=== PATIENT | male | born 1945 | race African-American/Black ===

== ENCOUNTER 2025-04-24 15:11 | Inpatient (IN) | payer OTHER ==
[2025-04-24] MEDS ORDERED: CALCIUM GLUC IN NACL, ISO-OSM 1 GM/50 ML BAG IVPB ONE (15:18)
[2025-04-24] MEDS ORDERED: MAGNESIUM SULFATE IN WATER 2 GM/50 ML IVPB IVPB ONE (15:18)
[2025-04-24 15:29] LABS: VENOUS BASE EXCESS -8.3 mmol/L (-2-2); VENOUS O2 SATURATION 84.7 % (70-80); VENOUS PCO2 63.2 mmHg (38-52)
[2025-04-24 15:31] LABS: ABSOLUTE IMMATURE GRANULOCYTES 0.11 x10^3/uL (0.0-0.031); BASOPHILS # 0.01 x10^3/uL (0.01-0.08); HEMATOCRIT 45.2 % (40.1-51.0); HEMOGLOBIN 14.9 g/dL (13.7-17.5); MEAN CELL VOLUME 87.4 fl (79.0-92.2); MEAN PLT VOLUME 10.2 fl (9.4-12.4); MONOCYTE # 1.11 x10^3/uL (0.30-0.82); MONOCYTE % 6.6 % (5.3-12.2); PLATELET COUNT 273 x10^3/uL (163-337); RDW 13.5 % (12.2-16.6); VENOUS PH 7.153 (7.310-7.410)
[2025-04-24] MEDS: methylPREDNISolone NA SUCC 125 MG/2 ML VIAL IVPB ONE (15:34)
[2025-04-24] MEDS: ALBUTEROL SO4 2.5/IPRATROPIUM 0.5 INH SOL 3 ML VIAL.NEB. NEB ONE ×3 (15:34→20:14)
[2025-04-24] MEDS: MAGNESIUM SULF 50% (8.12 MEQ/2 ML-1 GM VIAL) IVPB ONE (15:34)
[2025-04-24 15:41] LABS: INR 1.16 (0.83-1.09); PROTHROMBIN TIME (PATIENT) 12.8 SEC (9.7-13.0)
[2025-04-24 15:43] LABS: ACTIVATED PTT 33.2 SECONDS (25.2-36.5)
[2025-04-24 15:50] LABS: CHLORIDE 95 mmol/L (98-107); POTASSIUM 3.2 mmol/L (3.5-5.1); SODIUM 139 mmol/L (136-145)
[2025-04-24] MEDS: ROCURONIUM BROMIDE 50 MG/5 ML VIAL IV ONE ×2 (15:51→16:02)
[2025-04-24] MEDS: ETOMIDATE 20 MG/10 ML VIAL IVPUSH ONE (15:51)
[2025-04-24 15:52] LABS: ALBUMIN 3.2 g/dl (3.4-5.0); ANION GAP 20 mmol/L (4-13); BLOOD UREA NITROGEN 43.3 mg/dL (7-18); CALCIUM 9.6 mg/dL (8.5-10.1); CO2 24 mmol/L (21-32); MAGNESIUM 2.6 mg/dL (1.8-2.4)
[2025-04-24] MEDS: MAGNESIUM 2GM/50ML STERILE WATER IVPB IVPB ONE (15:53)
[2025-04-24 15:56] LABS: CREATININE 2.3 mg/dL (0.55-1.3); SGOT/AST 28 U/L (15-37); SGPT/ALT 18 U/L (13-61)
[2025-04-24] MEDS ORDERED: MEROPENEM 1 GM VIAL (RESTRICTED TO ID) IVPB ONE (15:56)
[2025-04-24 15:57] LABS: BILIRUBIN,TOTAL 1.2 mg/dL (0.2-1); TOT PROT 7.2 g/dl (6.4-8.2)
[2025-04-24 15:58] LABS: ALK PHOS 151 U/L (45-117)
[2025-04-24] MEDS: MEROPENEM 1 GM in DEXTROSE 5%-WATER 100 ML IVPB ONE (16:02)
[2025-04-24] MEDS ORDERED: PROPOFOL 1,000,000 MCG/100 ML VIAL ONE (16:06)
[2025-04-24] MEDS: PROPOFOL 1,000,000 MCG/100 ML VIAL IVPB SCH (16:16)
[2025-04-24 16:29] LABS: GLUCOSE,RANDOM 711 mg/dL (74-106)
[2025-04-24 16:30] LABS: LACTIC ACID 8.2 mmol/L (0.4-2.0)
[2025-04-24] MEDS ORDERED: AZITHROMYCIN IVPB 500 MG/250 ML BAG IVPB ONE (16:35)
[2025-04-24] MEDS ORDERED: KCL 10 MEQ IVPB 10 MEQ/100 ML INFUS.BAG IVPB ONE ×2 (16:40→18:45)
[2025-04-24] MEDS: AZITHROMYCIN IVPB 500 MG in DEXTROSE 5%-WATER - 250 ML IVPB ONE (16:50)
[2025-04-24] MEDS: LACTATED RINGERS SOLUTION 1000 ML INFUS.BAG IV ONE (16:55)
[2025-04-24] MEDS: KCL 10 MEQ IVPB 10 MEQ/100 ML INFUS.BAG IVPB SCH (16:55)
[2025-04-24 17:25] LABS: PH,URINE 6.5 (5.0-8.0); URINE APPEARANCE CLEAR; URINE BILIRUBIN NEGATIVE (NEGATIVE); URINE COLOR YELLOW; URINE GLUCOSE (UA) 3+ (NEGATIVE); URINE KETONE NEGATIVE (NEGATIVE); URINE LEUK ESTERASE NEGATIVE (NEGATIVE); URINE NITRITE NEGATIVE (NEGATIVE); URINE PROTEIN 3+ (NEGATIVE); URINE UROBILINOGEN 0.2 mg/dL (0.2-1.0)
[2025-04-24 17:33] LABS: EPI CELLS 2.2 /uL (0-25.1); HYALINE CASTS 0.25 /uL (0-3.1); URINE BACTERIA 0.9 /uL (0-1359); URINE RBC 24.6 /uL (0-23.9); URINE WBC 3.5 /uL (0-25.8)
[2025-04-24 17:36] LABS: ARTERIAL BLD GAS O2 SATURATION 99.7 % (95-98); ARTERIAL BLOOD GAS BASE EXCESS -4.3 mmol/L (-2-2); ARTERIAL BLOOD GAS PO2 332.3 mmHg (80-100); ARTERIAL BLOOD GAS pH 7.319 (7.350-7.450)
[2025-04-24 17:37] LABS: ALLENS TEST POSITIVE
[2025-04-24 17:38] LABS: VENT MODE V-AC; VENT RATE 16
[2025-04-24] MEDS ORDERED: VANCOMYCIN 1 GM PREMIX (F) 1 GM/200 ML BAG ONE (17:49)
[2025-04-24] MEDS: VANCOMYCIN 1 GM PREMIX (F) 1 GM/200 ML BAG IVPB ONE (18:12)
[2025-04-24 18:50] LABS: CHLORIDE 100 mmol/L (98-107); POTASSIUM 3.8 mmol/L (3.5-5.1); SODIUM 140 mmol/L (136-145)
[2025-04-24 18:52] LABS: ANION GAP 15 mmol/L (4-13); BLOOD UREA NITROGEN 42.5 mg/dL (7-18); CALCIUM 8.9 mg/dL (8.5-10.1); CO2 25 mmol/L (21-32)
[2025-04-24 19:59] LABS: GLUCOSE,RANDOM 694 mg/dL (74-106); LACTIC ACID 2.9 mmol/L (0.4-2.0)
[2025-04-24] MEDS ORDERED: FENTANYL NS IVPB 500 MCG/100 ML BAG IVPB ONE ×2 (20:02→22:53)
[2025-04-24] MEDS: FENTANYL IVPB 500 MCG/100 ML BAG IVPB SCH (20:05)
[2025-04-24] MEDS ORDERED: DEXTROSE 50%-WATER 25 GM/50 ML DISP.SYRIN IVPUSH PRN (20:09)
[2025-04-24] MEDS: ALBUTEROL SO4 2.5/IPRATROPIUM 0.5 INH SOL 3 ML VIAL.NEB. NEB PRN (20:14)
[2025-04-24] MEDS ORDERED: KCL 20 MEQ PREMIX BAG 20 MEQ/100 ML INFUS.BAG IVPB SCH (20:15)
[2025-04-24] MEDS: INSULIN REGULAR HUMAN 100 UNITS/ML *VIAL* (FOR IVP) IVPUSH ONE (20:25)
[2025-04-24] MEDS: INSULIN REGULAR 100 UNITS in SODIUM CHLORIDE 99 ML IVPB SCH (21:08)
[2025-04-24] MEDS: D5-1/2NS+20 MEQ KCL - 20 MEQ/1,000 ML INFUS.BAG IV SCH (21:15)
[2025-04-24] MEDS ORDERED: INSULIN REGULAR HUMAN 100 UNITS/ML *VIAL ONE (21:24)
[2025-04-24] MEDS: APIXABAN 5 MG TABLET NGT SCH (21:29)
[2025-04-24] MEDS: CHLORHEXIDINE GLUCONATE 4% CLEANSER FOR DECOLONIZATION TP SCH (21:29)
[2025-04-24] MEDS: MUPIROCIN 2% TOPICAL OINTMENT FOR DECOLONIZATION NS SCH (21:29)
[2025-04-24] MEDS: levETIRAcetam 500 MG/5 ML INJECTION VIAL IVPB SCH (22:00)
[2025-04-24] MEDS ORDERED: APIXABAN 5 MG TABLET PO SCH (22:00)
[2025-04-24] MEDS ORDERED: HEPARIN NA (PORCINE) 5,000 UNITS/ML 1ML VIAL SQ SCH (22:00)
[2025-04-24 22:06] LABS: ARTERIAL BLOOD GAS BASE EXCESS -3.7 mmol/L (-2-2); ARTERIAL BLOOD GAS pH 7.359 (7.350-7.450); O2 CONTENT 1.81 % vol
[2025-04-24 22:34] LABS: CHLORIDE 102 mmol/L (98-107); POTASSIUM 3.5 mmol/L (3.5-5.1); SODIUM 140 mmol/L (136-145)
[2025-04-24 22:35] LABS: CALCIUM 8.8 mg/dL (8.5-10.1)
[2025-04-24 22:36] LABS: ANION GAP 15 mmol/L (4-13); BLOOD UREA NITROGEN 45.5 mg/dL (7-18); CO2 23 mmol/L (21-32); MAGNESIUM 2.5 mg/dL (1.8-2.4)
[2025-04-24 22:39] LABS: CREATININE 1.9 mg/dL (0.55-1.3); PHOSPHOROUS 3.8 mg/dL (2.5-4.9)
[2025-04-24 22:41] LABS: GLUCOSE,RANDOM 714 mg/dL (74-106)
[2025-04-24] MEDS: FENTANYL NS IVPB 500 MCG/100 ML BAG IVPB SCH (23:50)
[2025-04-25] MEDS: NOREPINEPHRINE 0.9 % NACL 8 MG/250 ML BAG IVPB SCH (00:23)
[2025-04-25] MEDS: MEROPENEM 1 GM in DEXTROSE 5%-WATER 100 ML IVPB SCH ×2 (01:17→18:32)
[2025-04-25 01:41] LABS: CHLORIDE 104 mmol/L (98-107); POTASSIUM 3.3 mmol/L (3.5-5.1); SODIUM 141 mmol/L (136-145)
[2025-04-25 01:44] LABS: ANION GAP 11 mmol/L (4-13); BLOOD UREA NITROGEN 50.1 mg/dL (7-18); CALCIUM 8.3 mg/dL (8.5-10.1); CO2 26 mmol/L (21-32); MAGNESIUM 2.5 mg/dL (1.8-2.4)
[2025-04-25 01:47] LABS: CREATININE 2.3 mg/dL (0.55-1.3); SGOT/AST 27 U/L (15-37); SGPT/ALT 15 U/L (13-61)
[2025-04-25 01:48] LABS: PHOSPHOROUS 2.5 mg/dL (2.5-4.9)
[2025-04-25 01:49] LABS: ALBUMIN 2.4 g/dl (3.4-5.0); BILIRUBIN,TOTAL 0.9 mg/dL (0.2-1); GLUCOSE,RANDOM 463 mg/dL (74-106); TOT PROT 5.3 g/dl (6.4-8.2)
[2025-04-25 01:53] LABS: N-TERMINAL BNP 3419.6 pg/ml (5-450)
[2025-04-25 02:01] LABS: ALK PHOS 105 U/L (45-117)
[2025-04-25] MEDS: VANCOMYCIN/WATER FOR INJ (PEG) 1,000 MG/200 ML BAG IVPB SCH (05:04)
[2025-04-25] MEDS: methylPREDNISolone NA SUCC 40 MG/1 ML VIAL IVPUSH SCH (05:04)
[2025-04-25] MEDS ORDERED: FUROSEMIDE 40 MG/4 ML INJECTABLE VIAL IVPUSH SCH (06:00)
[2025-04-25 07:04] LABS: INR 1.13 (0.83-1.09); PROTHROMBIN TIME (PATIENT) 12.4 SEC (9.7-13.0)
[2025-04-25 07:08] LABS: HEMATOCRIT 35.1 % (40.1-51.0); HEMOGLOBIN 11.8 g/dL (13.7-17.5); MCHC 33.6 g/dl (32.3-36.5); MEAN CELL VOLUME 86.2 fl (79.0-92.2); MEAN PLT VOLUME 10.1 fl (9.4-12.4); PLATELET COUNT 214 x10^3/uL (163-337); RDW 13.4 % (12.2-16.6)
[2025-04-25] MEDS: POTASSIUM CHLORIDE ORAL LIQUID 20 MEQ/15 ML NGT ONE (07:10)
[2025-04-25 07:18] LABS: POTASSIUM 3.4 mmol/L (3.5-5.1)
[2025-04-25 07:24] LABS: BLOOD UREA NITROGEN 51.8 mg/dL (7-18); CALCIUM 8.7 mg/dL (8.5-10.1)
[2025-04-25 07:27] LABS: CREATININE 2.3 mg/dL (0.55-1.3)
[2025-04-25] MEDS: INSULIN GLARGINE (LANTUS) 100 UNITS/ML UNITS SQ SCH (08:19)
[2025-04-25 09:08] LABS: POTASSIUM 4.1 mmol/L (3.5-5.1)
[2025-04-25 09:10] LABS: BLOOD UREA NITROGEN 52.1 mg/dL (7-18)
[2025-04-25 09:12] LABS: CREATININE 2.3 mg/dL (0.55-1.3)
[2025-04-25] MEDS: PANTOPRAZOLE 40 MG TABLET PO SCH (09:46)
[2025-04-25] MEDS: DEXTROSE 5%-NORMAL SALINE 1,000 ML IV SCH (10:50)
[2025-04-25] MEDS: INSULIN ASPART SLIDING SCALE (NOVOLOG) 1 VIAL SQ SCH (17:22)
[2025-04-25] MEDS ORDERED: ALBUMIN HUMAN 25% 12.5 GM/50 ML VIAL IV SCH (22:00)
[2025-04-25] MEDS: ATORVASTATIN CA 80 MG TABLET (FP) NGT SCH (22:05)
[2025-04-25] MEDS: MINERAL OIL/PET HY-PHL TOPICAL OINTMENT 454 GM JAR TP SCH (22:05)
[2025-04-25] MEDS: POLYETHYLENE GLYCOL (HEALTHYLAX) 3350 17 GM PACKET NGT SCH (22:05)
[2025-04-25] MEDS: ALBUMIN HUMAN 25% 100 ML VIAL IV SCH (22:07)
[2025-04-25] MEDS: DEXMEDETOMIDINE PREMIX 400 MCG/100 ML BAG IVPB SCH (22:11)
[2025-04-26] MEDS: INSULIN GLARGINE (LANTUS) 100 UNITS/ML UNITS SQ SCH ×2 (06:40→21:06)
[2025-04-26 07:09] LABS: ABSOLUTE IMMATURE GRANULOCYTES 0.09 x10^3/uL (0.0-0.031); BASOPHILS # 0.02 x10^3/uL (0.01-0.08); HEMOGLOBIN 10.6 g/dL (13.7-17.5); MCHC 33.1 g/dl (32.3-36.5); MEAN CELL VOLUME 87.7 fl (79.0-92.2); MEAN PLT VOLUME 10.6 fl (9.4-12.4); MONOCYTE # 1.07 x10^3/uL (0.30-0.82); MONOCYTE % 5.3 % (5.3-12.2); PLATELET COUNT 158 x10^3/uL (163-337); RDW 13.8 % (12.2-16.6)
[2025-04-26 07:26] LABS: POTASSIUM 4.5 mmol/L (3.5-5.1)
[2025-04-26 07:33] LABS: ALBUMIN 2.8 g/dl (3.4-5.0)
[2025-04-26 07:34] LABS: CALCIUM 8.5 mg/dL (8.5-10.1)
[2025-04-26 07:36] LABS: MAGNESIUM 2.7 mg/dL (1.8-2.4)
[2025-04-26 07:37] LABS: CREATININE 2.6 mg/dL (0.55-1.3); PHOSPHOROUS 5.6 mg/dL (2.5-4.9)
[2025-04-26 07:38] LABS: BILIRUBIN,TOTAL 0.7 mg/dL (0.2-1); TOT PROT 5.5 g/dl (6.4-8.2)
[2025-04-26] MEDS ORDERED: LORazepam 2 MG/ML SDV VIAL ONE ×2 (09:40→09:44)
[2025-04-26] MEDS ORDERED: PROPOFOL 1,000,000 MCG/100 ML VIAL ONE (09:53)
[2025-04-26] MEDS: LORazepam 2 MG/ML SDV VIAL IVPUSH ONE ×2 (10:00→10:05)
[2025-04-26] MEDS: levETIRAcetam 500 MG/5 ML INJECTION VIAL IVPB ONE (10:15)
[2025-04-26] MEDS: PROPOFOL 1,000,000 MCG/100 ML VIAL IVPB SCH (10:15)
[2025-04-26] MEDS ORDERED: NOREPINEPHRINE BITARTRATE 4 MG/4 ML ML IV ONE (11:05)
[2025-04-26] MEDS: ASPIRIN 81 MG CHEWABLE TABLETS PO SCH (11:55)
[2025-04-26] MEDS: CEFTRIAXONE 2 GM-D5W BAG 2 GM/50 ML BAG IVPB SCH (12:00)
[2025-04-26] MEDS: SODIUM CHLORIDE 0.45% 1,000 ML IV SCH (12:40)
[2025-04-26] MEDS ORDERED: ASPIRIN 81 MG CHEWABLE TABLETS ONE (16:03)
[2025-04-26] MEDS ORDERED: VANCOMYCIN 1 GM PREMIX (F) 1 GM/200 ML BAG IVPB ONE (20:00)
[2025-04-26] MEDS: VANCOMYCIN/WATER FOR INJ (PEG) 1 GM/200 ML BAG IVPB ONE (20:44)
[2025-04-26] MEDS: levETIRAcetam 500 MG/5 ML INJECTION VIAL IVPB SCH (21:05)
[2025-04-26] MEDS: BISACODYL 10 MG SUPP.RECT PR PRN (21:07)
[2025-04-26 21:14] LABS: ARTERIAL BLOOD GAS BASE EXCESS 0.9 mmol/L (-2-2); ARTERIAL BLOOD GAS PO2 151.1 mmHg (80-100)
[2025-04-27 07:36] LABS: ABSOLUTE IMMATURE GRANULOCYTES 0.16 x10^3/uL (0.0-0.031); BASOPHILS # 0.01 x10^3/uL (0.01-0.08); HEMATOCRIT 32.6 % (40.1-51.0); HEMOGLOBIN 10.7 g/dL (13.7-17.5); MCHC 32.8 g/dl (32.3-36.5); MEAN CELL VOLUME 88.6 fl (79.0-92.2); MONOCYTE % 5.6 % (5.3-12.2); PLATELET COUNT 161 x10^3/uL (163-337); RDW 13.9 % (12.2-16.6)
[2025-04-27 07:44] LABS: POTASSIUM 3.6 mmol/L (3.5-5.1)
[2025-04-27 07:48] LABS: ALBUMIN 3.1 g/dl (3.4-5.0); BLOOD UREA NITROGEN 81.8 mg/dL (7-18)
[2025-04-27 07:49] LABS: CALCIUM 8.4 mg/dL (8.5-10.1); LDL CHOLESTEROL (ONLY SJRH) 89 mg/dL (5-100)
[2025-04-27 07:50] LABS: HDL CHOLESTEROL 30 mg/dL (40-60); MAGNESIUM 2.7 mg/dL (1.8-2.4)
[2025-04-27 07:51] LABS: CREATININE 2.1 mg/dL (0.55-1.3)
[2025-04-27 07:52] LABS: PHOSPHOROUS 2.9 mg/dL (2.5-4.9)
[2025-04-27 07:53] LABS: BILIRUBIN,TOTAL 0.5 mg/dL (0.2-1)
[2025-04-27 07:55] LABS: CHOLESTEROL 182 mg/dL (50-200)
[2025-04-27 07:57] LABS: TOT PROT 5.5 g/dl (6.4-8.2)
[2025-04-27] MEDS: ASPIRIN COATED 81 MG TABLET.EC PO SCH (09:04)
[2025-04-27] MEDS: methylPREDNISolone NA SUCC 40 MG/1 ML VIAL IVPUSH SCH (09:04)
[2025-04-27] MEDS: amLODIPine BESYLATE 10 MG TABLET (FP) NGT ONE (18:37)
[2025-04-27] MEDS: hydrALAZINE HCL 20 MG/ML VIAL IVPUSH ONE ×2 (20:10→22:16)
[2025-04-27] MEDS ORDERED: hydrALAZINE HCL 10 MG TABLET PO SCH (22:00)
[2025-04-27] MEDS: hydrALAZINE HCL 10 MG TABLET NGT SCH (22:23)
[2025-04-27] MEDS: hydrALAZINE HCL 10 MG TABLET PO SCH (23:11)
[2025-04-27] MEDS: hydrALAZINE HCL 20 MG/ML VIAL IM ONE (23:11)
[2025-04-28] MEDS ORDERED: SODIUM CHLORIDE FOR INHALATION 3 ML VIAL.NEB IH SCH (06:30)
[2025-04-28 06:46] LABS: POTASSIUM 3.4 mmol/L (3.5-5.1)
[2025-04-28 06:50] LABS: ALBUMIN 2.8 g/dl (3.4-5.0); BLOOD UREA NITROGEN 61.6 mg/dL (7-18); CALCIUM 8.4 mg/dL (8.5-10.1); MAGNESIUM 2.6 mg/dL (1.8-2.4)
[2025-04-28 06:51] LABS: ABSOLUTE IMMATURE GRANULOCYTES 0.13 x10^3/uL (0.0-0.031); BASOPHILS # 0.02 x10^3/uL (0.01-0.08); HEMATOCRIT 35.6 % (40.1-51.0); HEMOGLOBIN 11.6 g/dL (13.7-17.5); MCHC 32.6 g/dl (32.3-36.5); MEAN CELL VOLUME 88.1 fl (79.0-92.2); MEAN PLT VOLUME 10.6 fl (9.4-12.4); MONOCYTE # 0.91 x10^3/uL (0.30-0.82); MONOCYTE % 7.1 % (5.3-12.2); PLATELET COUNT 197 x10^3/uL (163-337); RDW 13.8 % (12.2-16.6)
[2025-04-28 06:53] LABS: CREATININE 1.4 mg/dL (0.55-1.3)
[2025-04-28 06:54] LABS: PHOSPHOROUS 2.6 mg/dL (2.5-4.9)
[2025-04-28 06:55] LABS: BILIRUBIN,TOTAL 0.4 mg/dL (0.2-1); TOT PROT 5.4 g/dl (6.4-8.2)
[2025-04-28] MEDS: amLODIPine BESYLATE 10 MG TABLET (FP) NGT SCH (08:59)
[2025-04-28] MEDS: SODIUM CHLORIDE FOR INHALATION 3 ML VIAL.NEB IH SCH (09:00)
[2025-04-28] MEDS: ASPIRIN 81 MG CHEWABLE TABLETS PO ONE (09:16)
[2025-04-28] MEDS: PANTOPRAZOLE SODIUM 40 MG VIAL IVPUSH ONE (09:16)
[2025-04-28] MEDS: POTASSIUM CHLORIDE ORAL LIQUID 20 MEQ/15 ML NGT ONE ×2 (09:16→09:28)
[2025-04-28] MEDS: VANCOMYCIN 1,000 MG in DEXTROSE 5%-WATER - 250 ML IVPB SCH (09:27)
[2025-04-28] MEDS: VANCOMYCIN 1,000 MG in DEXTROSE 5%-WATER - 250 ML IVPB ONE (09:28)
[2025-04-28] MEDS: KCL 10 MEQ IVPB 10 MEQ/100 ML INFUS.BAG IVPB SCH (09:29)
[2025-04-28] MEDS: FUROSEMIDE 40 MG/4 ML INJECTABLE VIAL IVPUSH ONE (11:05)
[2025-04-28] MEDS: hydrALAZINE HCL 25 MG TABLET (FP) NGT SCH (14:37)
[2025-04-29] MEDS: hydrALAZINE HCL 20 MG/ML VIAL IVPUSH ONE (03:43)
[2025-04-29] MEDS: INSULIN GLARGINE (LANTUS) 100 UNITS/ML UNITS SQ SCH (06:40)
[2025-04-29 06:51] LABS: BASOPHILS # 0.02 x10^3/uL (0.01-0.08); RDW 13.9 % (12.2-16.6)
[2025-04-29 06:53] LABS: EOSINOPHIL % 0.1 % (0.8-7.0); EOSINOPHILS # 0.01 x10^3/uL (0.04-0.54); HEMATOCRIT 37.9 % (40.1-51.0); MCHC 31.7 g/dl (32.3-36.5); MEAN CELL VOLUME 89.6 fl (79.0-92.2); MEAN PLT VOLUME 10.5 fl (9.4-12.4); MONOCYTE # 1.23 x10^3/uL (0.30-0.82); MONOCYTE % 7.6 % (5.3-12.2); PLATELET COUNT 211 x10^3/uL (163-337)
[2025-04-29 07:12] LABS: POTASSIUM 3.6 mmol/L (3.5-5.1)
[2025-04-29 07:28] LABS: CALCIUM 9.3 mg/dL (8.5-10.1)
[2025-04-29 07:29] LABS: BLOOD UREA NITROGEN 54.3 mg/dL (7-18); MAGNESIUM 2.6 mg/dL (1.8-2.4)
[2025-04-29 07:32] LABS: CREATININE 1.5 mg/dL (0.55-1.3); PHOSPHOROUS 2.5 mg/dL (2.5-4.9)
[2025-04-29 07:33] LABS: BILIRUBIN,TOTAL 0.4 mg/dL (0.2-1); TOT PROT 5.8 g/dl (6.4-8.2)
[2025-04-29] MEDS ORDERED: SODIUM CHLORIDE 0.45% 1,000 ML IV SCH (08:45)
[2025-04-29] MEDS: ASPIRIN 81 MG CHEWABLE TABLETS PO SCH (09:28)
[2025-04-29] MEDS: PANTOPRAZOLE SODIUM 40 MG VIAL IVPUSH SCH (09:29)
[2025-04-29] MEDS: methylPREDNISolone NA SUCC 40 MG/1 ML VIAL IVPUSH SCH (09:29)
[2025-04-29] MEDS: LISINOPRIL 20 MG TABLET PO ONE (13:55)
[2025-04-29] MEDS: hydrALAZINE HCL 50 MG TABLET (FP) NGT SCH (13:55)
[2025-04-29] MEDS: POTASSIUM CHLORIDE 10 MEQ in DEXTROSE 5%-WATER - 1,000 ML IV SCH (18:39)
[2025-04-29 21:06] LABS: ANTIGLOMERULAR BASEMENT MEN.AB <0.2 units (0.0-0.9)
[2025-04-29] MEDS: DEXTROSE 5%-WATER - 1,000 ML IV SCH (22:19)
[2025-04-30 06:30] LABS: POTASSIUM 3.7 mmol/L (3.5-5.1)
[2025-04-30 06:33] LABS: BLOOD UREA NITROGEN 49.6 mg/dL (7-18); CALCIUM 8.8 mg/dL (8.5-10.1); MAGNESIUM 2.5 mg/dL (1.8-2.4)
[2025-04-30 06:36] LABS: CREATININE 1.4 mg/dL (0.55-1.3)
[2025-04-30 06:46] LABS: BASOPHILS # 0.02 x10^3/uL (0.01-0.08); EOSINOPHIL % 0.8 % (0.8-7.0); HEMATOCRIT 35.7 % (40.1-51.0); HEMOGLOBIN 11.1 g/dL (13.7-17.5); MCHC 31.1 g/dl (32.3-36.5); MEAN CELL VOLUME 91.5 fl (79.0-92.2); MEAN PLT VOLUME 10.4 fl (9.4-12.4); MONOCYTE % 7.7 % (5.3-12.2); PLATELET COUNT 206 x10^3/uL (163-337); RDW 14.1 % (12.2-16.6)
[2025-04-30] MEDS: LISINOPRIL 20 MG TABLET PO SCH (10:04)
[2025-04-30] MEDS ORDERED: BISACODYL 10 MG SUPP.RECT PR PRN (18:04)
[2025-04-30] MEDS ORDERED: DEXTROSE 50%-WATER 25 GM/50 ML DISP.SYRIN IVPUSH PRN (18:04)
[2025-04-30] MEDS: levETIRAcetam 500 MG/5 ML INJECTION VIAL IVPB SCH (21:36)
[2025-04-30] MEDS: POLYETHYLENE GLYCOL (HEALTHYLAX) 3350 17 GM PACKET NGT SCH (21:36)
[2025-04-30] MEDS: APIXABAN 5 MG TABLET NGT SCH (21:36)
[2025-04-30] MEDS: ATORVASTATIN CA 80 MG TABLET (FP) NGT SCH (21:36)
[2025-04-30] MEDS: INSULIN ASPART SLIDING SCALE (NOVOLOG) 1 VIAL SQ SCH (21:58)
[2025-05-01] MEDS: INSULIN GLARGINE (LANTUS) 100 UNITS/ML UNITS SQ SCH (06:50)
[2025-05-01 08:22] LABS: ABSOLUTE IMMATURE GRANULOCYTES 0.09 x10^3/uL (0.0-0.031); BASOPHILS # 0.01 x10^3/uL (0.01-0.08); EOSINOPHIL % 2.5 % (0.8-7.0); EOSINOPHILS # 0.27 x10^3/uL (0.04-0.54); HEMATOCRIT 36.1 % (40.1-51.0); HEMOGLOBIN 11.3 g/dL (13.7-17.5); MCHC 31.3 g/dl (32.3-36.5); MEAN CELL VOLUME 90.9 fl (79.0-92.2); MEAN PLT VOLUME 10.2 fl (9.4-12.4); MONOCYTE # 0.99 x10^3/uL (0.30-0.82); MONOCYTE % 9.3 % (5.3-12.2); PLATELET COUNT 232 x10^3/uL (163-337); RDW 13.5 % (12.2-16.6)
[2025-05-01 08:55] LABS: ALBUMIN 2.7 g/dl (3.4-5.0); BLOOD UREA NITROGEN 49.3 mg/dL (7-18); CALCIUM 9.2 mg/dL (8.5-10.1); MAGNESIUM 2.4 mg/dL (1.8-2.4)
[2025-05-01 08:56] LABS: CREATININE 1.4 mg/dL (0.55-1.3)
[2025-05-01 08:58] LABS: BILIRUBIN,TOTAL 0.5 mg/dL (0.2-1); TOT PROT 5.6 g/dl (6.4-8.2)
[2025-05-01] MEDS: PANTOPRAZOLE SODIUM 40 MG VIAL IVPUSH SCH (10:24)
[2025-05-01] MEDS: CEFTRIAXONE 2 GM-D5W BAG 2 GM/50 ML BAG IVPB SCH (10:24)
[2025-05-01] MEDS: amLODIPine BESYLATE 10 MG TABLET (FP) NGT SCH (10:25)
[2025-05-01] MEDS: ASPIRIN 81 MG CHEWABLE TABLETS PO SCH (10:25)
[2025-05-01] MEDS: LISINOPRIL 20 MG TABLET PO SCH (10:25)
[2025-05-01] MEDS: DEXTROSE 5%-WATER - 1,000 ML IV SCH (14:00)
[2025-05-01 23:59] VITALS: BMI 33.7
[2025-05-02 07:48] LABS: HEMATOCRIT 35.5 % (40.1-51.0); MEAN PLT VOLUME 10.4 fl (9.4-12.4); PLATELET COUNT 243 x10^3/uL (163-337); RDW 13.4 % (12.2-16.6)
[2025-05-02 08:12] LABS: POTASSIUM 4.1 mmol/L (3.5-5.1)
[2025-05-02 08:19] LABS: BLOOD UREA NITROGEN 55.1 mg/dL (7-18)
[2025-05-02 08:22] LABS: CALCIUM 9.3 mg/dL (8.5-10.1); MAGNESIUM 2.4 mg/dL (1.8-2.4); PHOSPHOROUS 3.4 mg/dL (2.5-4.9)
[2025-05-02 08:23] LABS: CREATININE 1.6 mg/dL (0.55-1.3)
[2025-05-02] MEDS: FAMOTIDINE 20 MG/2.5 ML ORAL LIQUID NGT SCH (10:08)
[2025-05-02] MEDS: MULTIVIT-MINERALS ORAL LIQUID PO SCH (14:19)
[2025-05-02] MEDS: ASCORBIC ACID 500 MG TABLET (FP) PO SCH (14:19)
[2025-05-02 16:06] LABS: C-ANCA <1:20 titer (Neg:<1:20)
[2025-05-02 19:11] VITALS: RESP 18
[2025-05-02] MEDS: ALBUTEROL SO4 2.5/IPRATROPIUM 0.5 INH SOL 3 ML VIAL.NEB. NEB PRN (20:23)
[2025-05-02] MEDS ORDERED: INSULIN ASPART SLIDING SCALE (NOVOLOG) 1 VIAL SQ ONE (22:11)
[2025-05-03 08:05] LABS: ABSOLUTE IMMATURE GRANULOCYTES 0.13 x10^3/uL (0.0-0.031); BASOPHILS # 0.02 x10^3/uL (0.01-0.08); EOSINOPHIL % 2.4 % (0.8-7.0); HEMATOCRIT 34.7 % (40.1-51.0); MCHC 31.7 g/dl (32.3-36.5); MEAN CELL VOLUME 90.4 fl (79.0-92.2); MEAN PLT VOLUME 10.5 fl (9.4-12.4); MONOCYTE % 9.6 % (5.3-12.2); PLATELET COUNT 266 x10^3/uL (163-337); RDW 13.5 % (12.2-16.6)
[2025-05-03 08:23] LABS: POTASSIUM 4.3 mmol/L (3.5-5.1)
[2025-05-03 08:27] LABS: ALBUMIN 2.6 g/dl (3.4-5.0); BLOOD UREA NITROGEN 56.4 mg/dL (7-18); CALCIUM 8.8 mg/dL (8.5-10.1)
[2025-05-03 08:32] LABS: BILIRUBIN,TOTAL 0.6 mg/dL (0.2-1); TOT PROT 5.5 g/dl (6.4-8.2)
[2025-05-03] MEDS: SODIUM CHLORIDE 0.45% 1,000 ML IV SCH (14:41)
[2025-05-03 15:59] VITALS: BP 103/40; PULSE 64; TEMP 98.9
== END 2025-05-03 17:06 | DRG 871 ==
LOC: EDBD 15:11 → JER 15:11 → JERBED 17:15 → JICU 21:03 → J4W 04-30 17:37
PROVIDERS: ADMIT Internal Medicine Pulmonary Disease; ATTEND Internal Medicine
PROC: 5A1945Z Respiratory Ventilation, 24-96 Consecutive Hours (ICD-10-PCS; principal; 2025-04-24)
PROC: 0BH17EZ Insertion of Endotracheal Airway into Trachea, Via Natural or Artificial Opening (ICD-10-PCS; 2025-04-24)
PROC: 4A133B1 Monitoring of Arterial Pressure, Peripheral, Percutaneous Approach (ICD-10-PCS; 2025-04-24)
PROC: 4A133J1 Monitoring of Arterial Pulse, Peripheral, Percutaneous Approach (ICD-10-PCS; 2025-04-24)
DX: A41.9 Sepsis, unspecified organism (principal); E11.10 Type 2 diabetes mellitus with ketoacidosis without coma; J69.0 Pneumonitis due to inhalation of food and vomit; I63.9 Cerebral infarction, unspecified; G93.41 Metabolic encephalopathy; J96.01 Acute respiratory failure with hypoxia; R65.21 Severe sepsis with septic shock; L97.929 Non-pressure chronic ulcer of unspecified part of left lower leg with unspecified severity; I50.32 Chronic diastolic (congestive) heart failure; I13.0 Hypertensive heart and chronic kidney disease with heart failure and stage 1 through stage 4 chronic kidney disease, or unspecified chronic kidney disease; I48.92 Unspecified atrial flutter; N17.9 Acute kidney failure, unspecified; N18.9 Chronic kidney disease, unspecified; L89.152 Pressure ulcer of sacral region, stage 2; I83.029 Varicose veins of left lower extremity with ulcer of unspecified site; G40.909 Epilepsy, unspecified, not intractable, without status epilepticus; E66.9 Obesity, unspecified; Z68.34 Body mass index [BMI] 34.0-34.9, adult
CPT/HCPCS: 0241U-QW; 36415; 36600; 70450-TC; 70551-TC; 71045-TC-FY; 72125-TC; 76775-TC; 80048; 80053; 80061; 81003; 82010; 82140; 82550; 82553; 82728; 82803; 82962; 83036; 83516; 83520; 83540; 83550; 83605; 83690; 83735; 83880; 84100; 84155; 84165; 84439; 84443; 84466; 84478; 84484; 85025; 85027; 85610; 85730; 86038; 86160; 86225; 86256; 86850; 86900; 86901; 87040; 87086; 87899; 93005; 93010; 93306-TC; 94002; 94640; 95816; 97116-GP; 97162-GP; 99291; G0480

== ENCOUNTER 2025-08-11 22:53 | Inpatient (IN) | payer OTHER ==
[2025-08-11] MEDS ORDERED: FUROSEMIDE 40 MG/4 ML INJECTABLE VIAL ONE (23:35)
[2025-08-11 23:55] LABS: ABSOLUTE IMMATURE GRANULOCYTES 0.01 x10^3/uL (0.0-0.031); BASOPHILS # 0.02 x10^3/uL (0.01-0.08); EOSINOPHIL % 2.4 % (0.8-7.0); EOSINOPHILS # 0.13 x10^3/uL (0.04-0.54); MCHC 30.1 g/dl (32.3-36.5); MEAN CELL VOLUME 89.1 fl (79.0-92.2); MEAN PLT VOLUME 9.6 fl (9.4-12.4); MONOCYTE # 0.47 x10^3/uL (0.30-0.82); MONOCYTE % 8.6 % (5.3-12.2); RDW 17.1 % (12.2-16.6)
[2025-08-12 00:09] LABS: BG HCT 30.0 % (35.4-49); VENOUS BASE EXCESS 9.8 mmol/L (-2-2); VENOUS O2 SATURATION 71.0 % (70-80); VENOUS PCO2 59.9 mmHg (38-52); VENOUS PH 7.399 (7.310-7.410)
[2025-08-12] MEDS: FUROSEMIDE 40 MG/4 ML INJECTABLE VIAL IVPUSH ONE ×2 (00:20→10:11)
[2025-08-12 00:25] LABS: GLUCOSE,RANDOM 123.0 mg/dL (74-106)
[2025-08-12 00:26] LABS: TOT PROT 6.8 g/dl (6.4-8.2)
[2025-08-12 00:27] LABS: CO2 34.0 mmol/L (21-32)
[2025-08-12 00:28] LABS: ALK PHOS 100.0 U/L (40-150)
[2025-08-12 00:31] LABS: CREATININE 1.54 mg/dL (0.55-1.3); SGOT/AST 14.0 U/L (5-34); SGPT/ALT 7.0 U/L (0-55)
[2025-08-12 01:48] LABS: HCV DIAGNOSTIC IN-HOUSE W/RFLX NON-REACTIVE (NONREACTIVE); HIV INTERPRETATION NEGATIVE (NEGATIVE); N-TERMINAL BNP 1866.3 pg/mL (0-299.9)
[2025-08-12] MEDS ORDERED: VANCOMYCIN 1 GM PREMIX (F) 1 GM/200 ML BAG ONE (02:12)
[2025-08-12] MEDS: VANCOMYCIN 1,000 MG in DEXTROSE 5%-WATER - 250 ML IVPB ONE (02:22)
[2025-08-12 06:44] LABS: ABSOLUTE IMMATURE GRANULOCYTES 0.02 x10^3/uL (0.0-0.031); BASOPHILS # 0.03 x10^3/uL (0.01-0.08); EOSINOPHIL % 2.1 % (0.8-7.0); EOSINOPHILS # 0.12 x10^3/uL (0.04-0.54); MCHC 30.3 g/dl (32.3-36.5); MEAN CELL VOLUME 89.1 fl (79.0-92.2); MEAN PLT VOLUME 9.5 fl (9.4-12.4); MONOCYTE # 0.61 x10^3/uL (0.30-0.82); MONOCYTE % 10.5 % (5.3-12.2); RDW 17.1 % (12.2-16.6)
[2025-08-12] MEDS ORDERED: LACTULOSE 20 GM/30 ML UDC (FOR ORAL USE ONLY) ONE (06:51)
[2025-08-12 06:56] LABS: GLUCOSE,RANDOM 119.0 mg/dL (74-106)
[2025-08-12 06:58] LABS: CO2 36.0 mmol/L (21-32)
[2025-08-12 07:02] LABS: CREATININE 1.57 mg/dL (0.55-1.3)
[2025-08-12] MEDS: LACTULOSE 20 GM/30 ML UDC (FOR ORAL USE ONLY) PO ONE (07:10)
[2025-08-12 07:13] LABS: INR 1.94 (0.83-1.09); PROTHROMBIN TIME (PATIENT) 21.1 SEC (9.7-13.0)
[2025-08-12 07:14] LABS: ACTIVATED PTT 40.7 SECONDS (25.2-36.5)
[2025-08-12] MEDS ORDERED: SENNOSIDES 8.6MG TABLET (FP) PO PRN (08:31)
[2025-08-12] MEDS ORDERED: ALBUTEROL SO4 2.5/IPRATROPIUM 0.5 INH SOL 3 ML VIAL.NEB. NEB PRN (08:31)
[2025-08-12] MEDS ORDERED: SODIUM PHOSPHATE/NA BIPHOS 133 ML ENEMA RC PRN (08:33)
[2025-08-12] MEDS ORDERED: FUROSEMIDE 40 MG/4 ML INJECTABLE VIAL ONE (09:28)
[2025-08-12] MEDS ORDERED: APIXABAN 5 MG TABLET ONE (10:17)
[2025-08-12] MEDS ORDERED: amLODIPine BESYLATE 5 MG TABLET (FP) ONE (10:17)
[2025-08-12] MEDS ORDERED: ASCORBIC ACID 500 MG TABLET (FP) ONE (10:17)
[2025-08-12] MEDS ORDERED: FAMOTIDINE 20 MG TABLET ONE (10:17)
[2025-08-12] MEDS ORDERED: LISINOPRIL 10 MG TABLET ONE (10:17)
[2025-08-12] MEDS ORDERED: levETIRAcetam 500 MG TABLET (FP) PO ONE (10:17)
[2025-08-12] MEDS: APIXABAN 5 MG TABLET PO SCH (10:23)
[2025-08-12] MEDS: levETIRAcetam 500 MG TABLET (FP) PO SCH (10:23)
[2025-08-12] MEDS: guaiFENesin/D-METHORPHAN TAB.ER.12H PO SCH (10:24)
[2025-08-12] MEDS: amLODIPine BESYLATE 5 MG TABLET (FP) PO SCH (10:24)
[2025-08-12] MEDS: FAMOTIDINE 20 MG TABLET PO SCH (10:25)
[2025-08-12] MEDS: LISINOPRIL 10 MG TABLET PO SCH (10:26)
[2025-08-12] MEDS: ASCORBIC ACID 500 MG TABLET (FP) PO SCH (10:26)
[2025-08-12] MEDS: BETHANECHOL CHLORIDE 10 MG TABLET PO SCH (16:16)
[2025-08-12] MEDS: UMECLIDINIUM/VILANTEROL (ANORO) 62.5/25 MCG INHALER IH SCH (16:16)
[2025-08-12] MEDS: INSULIN ASPART SLIDING SCALE (NOVOLOG) 1 VIAL SQ SCH (16:28)
[2025-08-12] MEDS ORDERED: SODIUM HYPOCHLORITE 0.25%- 473 ML BULK BOTTLE TP SCH (16:45)
[2025-08-12] MEDS: MEROPENEM 500 MG in DEXTROSE 5%-WATER 100 ML IVPB SCH (18:25)
[2025-08-12] MEDS: MEROPENEM 1 GM in DEXTROSE 5%-WATER 100 ML IVPB SCH (18:32)
[2025-08-12] MEDS: FLU VACC TS2025-26(6MOS UP)/PF 45 MCG/0.5 ML SYRINGE IM ONE (18:36)
[2025-08-12] MEDS: SODIUM HYPOCHLORITE 0.25%- 473 ML BULK BOTTLE TP SCH (18:40)
[2025-08-12] MEDS: VANCOMYCIN/WATER FOR INJ (PEG) 1,000 MG/200 ML BAG IVPB ONE (19:44)
[2025-08-12] MEDS: AMMONIUM LACTATE 12% LOTION 225 GM BOTTLE TP SCH (21:12)
[2025-08-12] MEDS: TAMSULOSIN HCL 0.4 MG CAP PO SCH (21:12)
[2025-08-12] MEDS: ATORVASTATIN CA 40 MG TABLET (FP) NGT SCH (21:12)
[2025-08-12] MEDS: INSULIN GLARGINE (LANTUS) 100 UNITS/ML UNITS SQ SCH (21:37)
[2025-08-12] MEDS ORDERED: INSULIN GLARGINE (LANTUS) 100 UNITS/ML UNITS SQ SCH (22:00)
[2025-08-13] MEDS: EMPAGLIFLOZIN (JARDIANCE) 25 MG TABLET PO SCH (06:53)
[2025-08-13 07:30] LABS: ABSOLUTE IMMATURE GRANULOCYTES 0.00 x10^3/uL (0.0-0.031); BASOPHILS # 0.02 x10^3/uL (0.01-0.08); EOSINOPHIL % 2.5 % (0.8-7.0); EOSINOPHILS # 0.13 x10^3/uL (0.04-0.54); MCHC 29.4 g/dl (32.3-36.5); MEAN CELL VOLUME 90.4 fl (79.0-92.2); MEAN PLT VOLUME 9.6 fl (9.4-12.4); MONOCYTE # 0.50 x10^3/uL (0.30-0.82); MONOCYTE % 9.6 % (5.3-12.2); RDW 16.9 % (12.2-16.6)
[2025-08-13 07:47] LABS: GLUCOSE,RANDOM 108 mg/dL (74-106); TOT PROT 6.1 g/dl (6.4-8.2)
[2025-08-13 07:48] LABS: CO2 35 mmol/L (21-32)
[2025-08-13 07:50] LABS: ALK PHOS 94 U/L (40-150)
[2025-08-13 07:52] LABS: SGPT/ALT < 6 U/L (0-55)
[2025-08-13 07:53] LABS: CREATININE 1.55 mg/dL (0.55-1.3); SGOT/AST 12 U/L (5-34)
[2025-08-13] MEDS: FUROSEMIDE 40 MG/4 ML INJECTABLE VIAL IVPUSH SCH (09:44)
[2025-08-13] MEDS: AMINO ACIDS/PROTEIN HYDROLYS 30 ML LIQUID.PKT PO SCH (17:55)
[2025-08-13] MEDS: ENOXAPARIN NA (PORCINE) 100 MG/1 ML DISP.SYRIN SQ SCH (21:15)
[2025-08-14 06:58] LABS: ABSOLUTE IMMATURE GRANULOCYTES 0.02 x10^3/uL (0.0-0.031); BASOPHILS # 0.01 x10^3/uL (0.01-0.08); EOSINOPHIL % 1.5 % (0.8-7.0); EOSINOPHILS # 0.10 x10^3/uL (0.04-0.54); MCHC 29.4 g/dl (32.3-36.5); MEAN CELL VOLUME 90.0 fl (79.0-92.2); MEAN PLT VOLUME 9.3 fl (9.4-12.4); MONOCYTE # 0.59 x10^3/uL (0.30-0.82); MONOCYTE % 8.9 % (5.3-12.2); RDW 16.4 % (12.2-16.6)
[2025-08-14 07:37] LABS: GLUCOSE,RANDOM 65 mg/dL (74-106); TOT PROT 6.6 g/dl (6.4-8.2)
[2025-08-14 07:38] LABS: CO2 39 mmol/L (21-32)
[2025-08-14 07:39] LABS: ALK PHOS 98 U/L (40-150)
[2025-08-14 07:42] LABS: CREATININE 1.57 mg/dL (0.55-1.3); SGOT/AST 13 U/L (5-34); SGPT/ALT < 6 U/L (0-55)
[2025-08-14] MEDS: MULTIVITAMINS (DAILY MVI) TABLET (FP) PO SCH (09:17)
[2025-08-14] MEDS ORDERED: DEXTROSE 50%-WATER 25 GM/50 ML DISP.SYRIN IVPUSH PRN (17:08)
[2025-08-14] MEDS: INSULIN GLARGINE (LANTUS) 100 UNITS/ML UNITS SQ SCH (21:35)
[2025-08-15 06:54] LABS: MCHC 30.1 g/dl (32.3-36.5); MEAN CELL VOLUME 87.7 fl (79.0-92.2); MEAN PLT VOLUME 10.1 fl (9.4-12.4); RDW 16.2 % (12.2-16.6)
[2025-08-15 07:38] LABS: GLUCOSE,RANDOM 82.0 mg/dL (74-106)
[2025-08-15 07:39] LABS: CO2 33.0 mmol/L (21-32)
[2025-08-15 07:46] LABS: CREATININE 1.26 mg/dL (0.55-1.3)
[2025-08-15] MEDS: amLODIPine BESYLATE 5 MG TABLET (FP) PO ONE (17:20)
[2025-08-15] MEDS: APIXABAN 5 MG TABLET PO SCH (22:02)
[2025-08-15] MEDS ORDERED: INSULIN GLARGINE (LANTUS) 100 UNITS/ML UNITS SQ ONE (22:17)
[2025-08-16 07:12] LABS: ABSOLUTE IMMATURE GRANULOCYTES 0.03 x10^3/uL (0.0-0.031); BASOPHILS # 0.02 x10^3/uL (0.01-0.08); EOSINOPHIL % 2.4 % (0.8-7.0); EOSINOPHILS # 0.16 x10^3/uL (0.04-0.54); MCHC 29.5 g/dl (32.3-36.5); MEAN CELL VOLUME 87.3 fl (79.0-92.2); MEAN PLT VOLUME 9.7 fl (9.4-12.4); MONOCYTE # 0.71 x10^3/uL (0.30-0.82); MONOCYTE % 10.6 % (5.3-12.2); RDW 15.9 % (12.2-16.6)
[2025-08-16 07:16] LABS: GLUCOSE,RANDOM 110 mg/dL (74-106); TOT PROT 6.0 g/dl (6.4-8.2)
[2025-08-16 07:17] LABS: CO2 37 mmol/L (21-32)
[2025-08-16 07:18] LABS: ALK PHOS 81 U/L (40-150)
[2025-08-16 07:21] LABS: SGOT/AST 11 U/L (5-34); SGPT/ALT < 6 U/L (0-55)
[2025-08-16 07:22] LABS: CREATININE 1.51 mg/dL (0.55-1.3)
[2025-08-16] MEDS ORDERED: AMMONIUM LACTATE 12% LOTION 225 GM BOTTLE TP PRN (10:31)
[2025-08-16 13:35] LABS: LDL CHOLESTEROL (ONLY SJRH) 51 mg/dL (5-100)
[2025-08-16] MEDS ORDERED: INSULIN ASPART SLIDING SCALE (NOVOLOG) 1 VIAL SQ ONE (14:30)
[2025-08-17 06:48] LABS: ABSOLUTE IMMATURE GRANULOCYTES 0.02 x10^3/uL (0.0-0.031); BASOPHILS # 0.02 x10^3/uL (0.01-0.08); EOSINOPHIL % 3.0 % (0.8-7.0); EOSINOPHILS # 0.19 x10^3/uL (0.04-0.54); MCHC 30.4 g/dl (32.3-36.5); MEAN CELL VOLUME 86.9 fl (79.0-92.2); MEAN PLT VOLUME 9.9 fl (9.4-12.4); MONOCYTE # 0.79 x10^3/uL (0.30-0.82); MONOCYTE % 12.6 % (5.3-12.2); RDW 15.8 % (12.2-16.6)
[2025-08-17 07:27] LABS: GLUCOSE,RANDOM 82 mg/dL (74-106); TOT PROT 5.8 g/dl (6.4-8.2)
[2025-08-17 07:30] LABS: ALK PHOS 72 U/L (40-150)
[2025-08-17 07:33] LABS: CO2 36 mmol/L (21-32); CREATININE 1.61 mg/dL (0.55-1.3); SGOT/AST 11 U/L (5-34); SGPT/ALT < 6 U/L (0-55)
[2025-08-17 13:44] VITALS: BMI 36.9
[2025-08-18 16:43] VITALS: BP 164/80; PULSE 71; RESP 19; TEMP 96
== END 2025-08-18 17:14 | DRG 291 ==
LOC: JER 22:53 → JERBED 08-12 00:56 → J2W 08-12 14:34
PROVIDERS: ADMIT Internal Medicine; ATTEND Internal Medicine
DX: I13.0 Hypertensive heart and chronic kidney disease with heart failure and stage 1 through stage 4 chronic kidney disease, or unspecified chronic kidney disease (principal); I50.33 Acute on chronic diastolic (congestive) heart failure; L89.154 Pressure ulcer of sacral region, stage 4; N13.30 Unspecified hydronephrosis; I25.10 Atherosclerotic heart disease of native coronary artery without angina pectoris; E78.5 Hyperlipidemia, unspecified; L89.610 Pressure ulcer of right heel, unstageable; L89.620 Pressure ulcer of left heel, unstageable; E66.01 Morbid (severe) obesity due to excess calories; N18.9 Chronic kidney disease, unspecified; E87.70 Fluid overload, unspecified
CPT/HCPCS: 36415; 71045-TC-FY; 74176-TC; 80048; 80053; 80061; 82140; 82803; 82962; 83036; 83735; 83880; 84100; 84439; 84443; 84484; 85025; 85027; 85610; 85730; 86803; 87040; 87389; 87481; 87635; 90656; 93005; 93010; 97116-GP; 97162-GP; 99285-25; E0186; G0480